=== PATIENT | male | born 1970 | race Caucasian/White ===

== ENCOUNTER → 2017-05-17 | Outpatient (CLI) | payer BC, OTHER ==
[2017-05-17 16:27] LABS: BASO ABS # 0.06 K/uL (0-0.2); COMPLETE YES; EOS % 8.9 %; HEMATOCRIT 45.1 % (42-52); IG% 0.2 %; LYMPH % 31.6 %; LYMPH ABS # 1.99 K/uL (1.2-3.4); MEAN CELL VOLUME 88.4 fL (80-100); MEAN CORPUSCULAR HEMOGLOBIN 29.4 pg (25-34); MEAN CORPUSCULAR HGB CONC 33.3 g/dl (32-36); MEAN PLATELET VOLUME 11.3 fL (7.4-10.4); MONO % 11.3 %; PLATELET COUNT 281 K/uL (130-400); WHITE BLOOD COUNT 6.29 K/uL (4.8-10.8)
[2017-05-17 16:36] LABS: ALT/SGPT 53 U/L (12-78); AST/SGOT 37 U/L (15-37); BLOOD UREA NITROGEN 9 mg/dl (7-18); CALCIUM 9.5 mg/dl (8.5-10.1); CARBON DIOXIDE 27 mmol/L (21-32); CHLORIDE 107 mmol/L (98-107); CHOLESTEROL 198 mg/dl (0-200); GLUCOSE 88 mg/dl (70-99); POTASSIUM 4.1 mmol/L (3.5-5.1); SODIUM 142 mmol/L (136-145); URIC ACID 5.5 mg/dl (2.6-7.2)
[2017-05-17 16:40] LABS: ALB/GLOB RATIO 1.2 (0.9-2); ALKALINE PHOSPHATASE 70 U/L (45-117); CHOLESTEROL/HDL RATIO 5.4; HDL CHOLESTEROL 37 mg/dl; LDL CHOLESTEROL CALCULATED 123 mg/dl; TOTAL IRON BINDING CAPACITY 421 mcg/dl (250-450); TRIGLYCERIDES 189 mg/dl (0-150); VERY LOW DENSITY LIPOPROT CALC 38 mg/dl
== END | disposition home or self-care (01) ==
LOC: C.LABBFT 13:35
PROVIDERS: ATTEND Internal Medicine
DX: D64.9 Anemia, unspecified (principal); E78.5 Hyperlipidemia, unspecified; M10.9 Gout, unspecified

== ENCOUNTER → 2017-09-10 | Outpatient (CLI) | payer OTHER ==
[2017-09-10 17:28] LABS: BASO % 0.8 %; BASO ABS # 0.06 K/uL (0-0.2); COMPLETE YES; EOS % 6.2 %; HEMATOCRIT 47.4 % (42-52); IG% 0.3 %; LYMPH % 33.6 %; LYMPH ABS # 2.59 K/uL (1.2-3.4); MEAN CELL VOLUME 88.4 fL (80-100); MEAN CORPUSCULAR HEMOGLOBIN 30.8 pg (25-34); MEAN CORPUSCULAR HGB CONC 34.8 g/dl (32-36); MEAN PLATELET VOLUME 10.7 fL (7.4-10.4); MONO % 7.1 %; PLATELET COUNT 284 K/uL (130-400); RED BLOOD COUNT 5.36 M/uL (4.7-6.1)
[2017-09-10 17:42] LABS: ALT/SGPT 48 U/L (12-78); AST/SGOT 30 U/L (15-37); BLOOD UREA NITROGEN 10 mg/dl (7-18); BUN/CREATININE RATIO 9.4 (10-20); CALCIUM 8.7 mg/dl (8.5-10.1); CARBON DIOXIDE 23 mmol/L (21-32); CHLORIDE 107 mmol/L (98-107); CREATININE 1.03 mg/dl (0.60-1.40); GLUCOSE 121 mg/dl (70-99); POTASSIUM 3.4 mmol/L (3.5-5.1); SODIUM 138 mmol/L (136-145)
[2017-09-10 18:03] LABS: ALB/GLOB RATIO 1.1 (0.9-2); ALKALINE PHOSPHATASE 71 U/L (45-117); C-REACTIVE PROTEIN < 0.29 mg/dl (0-0.29); RHEUMATOID FACTOR < 10.0 U/mL (0-15)
[2017-09-10 19:16] LABS: LYME DISEASE AB IGG NEG (NEG)
[2017-09-10 20:01] LABS: LYME DISEASE AB IGM NEG (NEG)
== END | disposition home or self-care (01) ==
LOC: C.LABBFT 13:26
PROVIDERS: ATTEND Internal Medicine
DX: M25.50 Pain in unspecified joint (principal); M79.1 Myalgia

== ENCOUNTER → 2018-06-14 | Outpatient (CLI) | payer OTHER ==
[2018-06-14 17:32] LABS: HEMATOCRIT 49.1 % (42-52); HEMOGLOBIN 16.9 g/dL (14.0-18.0); MEAN CELL VOLUME 90.4 fL (80-100); MEAN CORPUSCULAR HEMOGLOBIN 31.1 pg (25-34); MEAN CORPUSCULAR HGB CONC 34.4 g/dl (32-36); MEAN PLATELET VOLUME 10.7 fL (7.4-10.4); PLATELET COUNT 307 K/uL (130-400); RED CELL DISTRIBUTION WIDTH CV 12.6 % (11.5-14.5); RED CELL DISTRIBUTION WIDTH SD 41.4 fL (36.4-46.3); WHITE BLOOD COUNT 8.25 K/uL (4.8-10.8)
[2018-06-14 17:55] LABS: ALBUMIN 4.1 gm/dl (3.4-5.0); ALKALINE PHOSPHATASE 77 U/L (45-117); ALT/SGPT 53 U/L (12-78); AST/SGOT 33 U/L (15-37); BLOOD UREA NITROGEN 12 mg/dl (7-18); CALCIUM 9.2 mg/dl (8.5-10.1); CARBON DIOXIDE 28 mmol/L (21-32); CHOLESTEROL 173 mg/dl (0-200); CREATININE 1.12 mg/dl (0.60-1.40); GLUCOSE 103 mg/dl (70-99); LDL CHOLESTEROL CALCULATED 94 mg/dl; POTASSIUM 4.1 mmol/L (3.5-5.1); SODIUM 138 mmol/L (136-145); TOTAL PROTEIN 7.7 gm/dl (6.4-8.2); URIC ACID 5.7 mg/dl (2.6-7.2)
== END | disposition home or self-care (01) ==
LOC: C.LABBFT 14:16
PROVIDERS: ATTEND Physician Assistant Medical
DX: N18.9 Chronic kidney disease, unspecified (principal); M10.9 Gout, unspecified; D50.9 Iron deficiency anemia, unspecified; E78.5 Hyperlipidemia, unspecified

== ENCOUNTER 2021-12-17 13:37 | Inpatient (IN) ==
--- NOTE | 2021-12-17 13:49 | Emergency Department Note ---
Impression & Plan Acute exacerbation of chronic low back pain, Lumbar radiculopathy, Lumbar disc herniation ED Provider Note NAME: KOREY SKELTON AGE: 51 SEX: M : 1970 ARRIVES VIA: Walk-In INFORMANT: Patient, ED PROVIDER(S): Shar Rodriguez MD Chief Complaint: Back pain HPI: Patient presents due to concern for back pain. Patient states primarily left-sided in the lower back is worse with ambulation. The patient does co mplain of occasional shooting pains but denies any numbness tingling or focal weakness. Patient denies any bowel bladder incontinence or saddle anesthesia. Patient has been following with pain management as well as orthospine with [facility] Dr. Higginbotham over the last 14 months. Patient was scheduled for surgery likely fusion and laminectomy to be completed on Sunday but was canceled. Patient denies any fevers chills chest pains or shortness of breath. Patient is a non-smoker and is vaccinated for COVID-19. Patient has been taking [id number] medications in addition narcotics but with no improvement in symptoms. Patient most recently had an MRI of the lumbar spine completed in August 2021. ROS: See HPI for pertinent positives and negatives. A total of 10 systems were reviewed and otherwise negative. Past medical history: See below Surgical history: See below Social history: See below Physical Exam: GENERAL: NAD, wearing a mask, non-toxic. EYE EXAM: Normal conjunctiva. PERRL, no anisocoria and EOM's grossly intact w/o pain. NECK: Supple, no nuchal rigidity, no adenopathy, non-tender. No signs of meningismus. LUNGS: Clear to auscultation. Normal chest wall mechanics. HEART: NSR, no MRG. ABDOMEN: Abdomen soft, non-tender, normo-active bowel sounds, no masses, no rebound or guarding. BACK: Left-sided lower lumbar paraspinal discomfort without overlying skin changes, no midline lumbar or thoracic spine TTP. SKIN: No rashes and no bruising. UPPER EXTREMITIES: Upper extremities are grossly normal. LOWER EXTREMITIES: Grossly normal, no edema. Negative straight leg raise bilaterally. NEURO EXAM: A&O x3, cranial nerves II-XII grossly intact, normal speech, moves all 4 extremities on command w/o issue. No sensory deficits, no saddle anesthesia. Differential diagnoses: Musculoskeletal, disc herniation, fracture, metastatic disease, cord compression, discitis, sciatica, cauda equina, infection, aortic disease, renal colic, gastrointestinal, as well as other pathologies. Course: Patient was seen and evaluated the bedside. Full history physical exam was performed. Cardiac monitoring: An order was placed for continuous cardiac monitoring. The monitor shows a rate of 72 with sinus rhythm. MDM: Patient was seen due to concern for acute on chronic back pain. Patient's pain was improved. No concerning signs for cauda equina. Given the patient has had symptoms for approximately 14 months patient would prefer surgery if possible. I did speak with the on-call network operations specialist Dr. Higginbotham with whom he follows and he is agreeable to see him in in the morning and may plan for surgery on Sunday. I did speak with the on-call hospitalist Dr. Eli. Patient was admitted to the medicine service. Blood work was obtained along with a Covid swab. Patient has a normal white count H&H and platelet count. Kidney function is unremarkable. Covid negative. Past Med/Surg History Medical History Anemia HX-TAKES DAILY IRON CURRENTLY Anxiety Asthma last rescue inhaler years ago Asthma Celiac disease Chronic back pain Depression Dyslipidemia GERD without esophagitis controlled, stable per pt Gout IgA nephropathy F/U PCP-stable per pt Lumbar disc herniation Surgical History Elective surgery REPAIR LIP INJURY-AGE 10 H/O colonoscopy (07/18/16) [facility] GI, 2 mm rectal polyp, hyperplastic, repeat 10 years History of esophagogastroduodenoscopy (EGD) Hx of left knee surgery ACL RECONSTRUCTION S/P knee surgery RIGHT KNEE-meniscectomy Family History Mother Rheumatoid arthritis Depression Father Depression Gall bladder disease Family history of diabetes mellitus Grandfather (Paternal) Family history of diabetes mellitus Other Myocardial infarction Denies family history of Ovarian cancer Prostate cancer Breast cancer Colorectal cancer Social History Smoking Status: Never smoker Second Hand Exposure: Yes ( A CHILD); Hx Alcohol Use: Yes Alcohol type: hard liquor Alcohol Intake Frequency Comment: patient denied etoh use on 12/17/21 Hx Substance Use: No Preferred Language: Mauritian Communication Ability: Effective Visual Impairment: No Limitations Hearing Ability: Normal Boss Dyer Required: No Beliefs That Will Affect Care: None marital status: Current Living Situation: Spouse, Parent and Family current occupational status: employed 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 How many Children do You have Comment: 2 biological children, 1 step child (has been 2x) Other Information That Helps Us Care for You: No other: lives in [place] with family Feels Safe at Home: Yes Safety Concerns: Feels Safe At This Time Childhood Exposure to Second-Hand Smoke: Yes caffeine: Yes during the past year weight has: remained stable Dental Care, Regularly: Yes Physical Activity Frequency: 3-4 Times per Week Seatbelt Use: always Sunscreen Use: Yes Assistive Devices: Contacts and Glasses Allergies Allergies Allergy/AdvReac Type Severity Reaction Status Date / Time No Known Allergies Allergy Verified 12/17/21 14:41 Home Meds Home Medications Medication Instructions Recorded Confirmed ferrous sulfate 325 mg (65 mg 650 mg PO BID tab 03/03/20 12/17/21 iron) tablet fluticasone 250 mcg-salmeterol 50 1 inh INHALATION BID 07/10/21 12/17/21 mcg/dose blistr powdr for inhalation (Advair Diskus) aspirin 81 mg tablet,delayed 81 mg PO HS 11/18/21 12/17/21 release atorvastatin 20 mg tablet 20 mg PO QAM 11/18/21 12/17/21 duloxetine 30 mg capsule,delayed 30 mg PO HS 11/18/21 12/17/21 release (Cymbalta) omeprazole 40 mg capsule,delayed 40 mg PO QAM 11/18/21 12/17/21 release celecoxib 200 mg capsule 200 mg PO BID 12/17/21 12/17/21 omega-3 fatty acids 1,000 mg 2,000 mg PO BID 12/17/21 12/17/21 capsule Previous Rx's Medication Instructions Recorded allopurinol 100 mg tablet 100 mg PO BID #180 tab 06/28/21 baclofen 10 mg tablet 10 mg PO BID PRN #60 tab 10/26/21 venlafaxine 75 mg capsule,extended 150 mg PO HS #180 cap 12/15/21 release 24 hr Results & Data (ED) Vital Signs Vital Signs - 24 hr 12/17/21 13:42 Temperature 36.8 C Temperature Source Temporal Artery Scan Pulse Rate 78 Respiratory Rate 16 Respiratory Effort / Characteristics Non-Labored Respiratory Depth Normal Respiratory Pattern Regular Blood Pressure 151/104 H Blood Pressure Mean 119 Pulse Oximetry 96 Oxygen Delivery Method Room Air Sepsis Recent Fever Within 48 Hours No Sepsis New/Unexplained Change in Mental Status No Sepsis Action Taken by Nursing No Action Required Home Medications Current Medication List: was personally reviewed by me Laboratory Data Attestation: I reviewed the patient's lab results. Result diagrams: 12/17/21 14:10 12/17/21 14:10 Lab Results 12/17/21 12/17/21 12/17/21 Range/Units 14:10 14:10 15:15 WBC 8.74 (4.8-10.8) K/uL RBC 5.23 (4.7-6.1) M/uL Hgb 16.1 (14.0-18.0) g/dL Hct 48.5 (42-52) % MCV 92.7 (80-100) fL MCH 30.8 (25-34) pg MCHC 33.2 (32-36) g/dL RDW Std Deviation 43.9 (36.4-46.3) fL RDW Coeff of Felix 12.8 (11.5-14.5) % Plt Count 316 (130-400) K/uL MPV 10.9 H (7.4-10.4) fL Immature Gran % (Auto) 0.2 % Neut % (Auto) 61.3 % Lymph % (Auto) 22.4 % Oliver % (Auto) 11.7 % Eos % (Auto) 3.9 % Baso % (Auto) 0.5 % Neut # (Auto) 5.36 (1.4-6.5) K/uL Lymph # (Auto) 1.96 (1.2-3.4) K/uL Oliver # (Auto) 1.02 H (0.11-0.59) K/uL Eos # (Auto) 0.34 (0-0.5) K/uL Baso # (Auto) 0.04 (0-0.2) K/uL Immature Gran # (Auto) 0.02 (0.00-0.02) K/uL Sodium 143 (136-145) mmol/L Potassium 4.1 (3.5-5.1) mmol/L Chloride 108 H (98-107) mmol/L Carbon Dioxide 28 (21-32) mmol/L Anion Gap 7 (3-11) BUN 8 (6-23) mg/dl Creatinine 0.75 (0.6-1.4) mg/dl Est Cr Clr Drug Dosing 135.2 ml/min Est GFR ( Amer) 124.0 ml/min Est GFR (Non-Af Amer) 107.0 ml/min BUN/Creatinine Ratio 10.7 (10-20) Glucose 98 (70-99(Fasting)) mg/dl Calcium 8.6 (8.5-10.1) mg/dl SARS-CoV-2, RNA, NAAT NEGATIVE (NEGATIVE) Administered Medications Discontinued Medications Ketorolac Tromethamine (Ketorolac Tromethamine 15 Mg/Ml Vial) 10 mg IV ONE STA Stop: 12/17/21 14:02 Last Admin: 12/17/21 14:16 Dose: 10 mg Documented by: [id number] Lidocaine (Lidocaine 5% 1 Patch) 1 patch TD NOW STA Stop: 12/17/21 14:02 Last Admin: 12/17/21 14:16 Dose: 1 patch Documented by: [id number] Methylprednisolone (Methylprednisolone 125 Mg/2 Ml Vial) 60 mg IV NOW STA Stop: 12/17/21 14:04 Last Admin: 12/17/21 14:15 Dose: 60 mg Documented by: [id number] Morphine Sulfate (Morphine Sulfate 4 Mg/Ml 1 Ml Carp\Vial) 4 mg IV NOW STA Stop: 12/17/21 14:02 Last Admin: 12/17/21 14:18 Dose: 4 mg Documented by: [id number] Ondansetron HCl (Ondansetron Inj 2 Mg/Ml 2 Ml Vial) 4 mg IV NOW STA Stop: 12/17/21 14:02 Last Admin: 12/17/21 14:14 Dose: 4 mg Documented by: [id number] Discharge Plan Visit Data Chief Complaint: Back Injury/Pain Stated Complaint: LOW BACK PAIN ED Provider: Shar Rodriguez Discharge Problem: Acute exacerbation of chronic low back pain, Lumbar radiculopathy, Lumbar disc herniation Patient Disposition: Admitted As Inpatient Discharge Instructions Interventions: ED Discharge Assessment Last Done: 12/17/21 17:32
[2021-12-17] MEDS ORDERED: MoRPHine SULFATE 4 MG/ML 1 ML CARP\\VIAL IV STA (14:01)
[2021-12-17] MEDS ORDERED: ONDANSETRON INJ 2 MG/ML 2 ML VIAL IV STA (14:01)
[2021-12-17] MEDS ORDERED: KETOROLAC TROMETHAMINE 15 MG/ML VIAL IV STA (14:01)
[2021-12-17] MEDS ORDERED: LIDOCAINE 5% 1 PATCH TD STA (14:01)
[2021-12-17] MEDS ORDERED: methylPREDNISolone 125 MG/2 ML VIAL IV STA (14:03)
--- NOTE | 2021-12-17 15:29 | History & Physical Report ---
Date of Service December 17, 2021 Assessment & Plan (1) Lumbar radiculopathy: Plan: patient with intractable lumbar back pain with radicular symptoms of the left leg. he has exhausted all nonoperative/conservative measures over the last year as delineated in the HPI. his pain is so severe that doing ADLs at home are nearly impossible at this time. pain has not been controlled with current pain regimen including celebrex, percocet prn, and baclofen. 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 At L5-S1 there is a large left paracentral disc protrusion which abuts and posteriorly displaces the left S1 nerve root resulting in severe central canal stenosis with severe left lateral recess narrowing. 2. Additional multilevel discogenic degeneration with ligamentum flavum thickening and facet arthrosis as detailed above resulting in multilevel central canal and neural foraminal stenosis. 3. Mild Modic type I endplate degeneration at L2-L3." The L5-S1 disc disease is likely the largest component of his intractable pain. See #1 above. (4) Celiac disease: Plan: gluten free diet (5) Dyslipidemia: Plan: cont statin (6) Depression: Plan: cont cymbalta; consider dose increase to 60mg/day (7) GERD without esophagitis: Plan: PPI daily (8) Gout: Plan: no flare at this time cont allopurinol prophylaxis (9) Asthma: Plan: no exacerbation at this time controlled cont albuterol prn cont controller agent (breo) (10) DVT prophylaxis: Plan: heparin SC Admission and Anticipated Discharge Date Admission Date: bowel regimen due to narcotic usage from medical standpoint he is optimized for any upcoming surgery from cardiopulmonary standpoint he is acceptable risk History of Present Illness Chief Complaint: intractable low back pain Primary Care Provider: EDUARDA Skinner 51yo male with history of celiac disease and intermittent asthma presents with acute/chronic lumbar back pain. Patient states he has been dealing with left-sided lumbar back pain for about 1 year. He has had associated radicular symptoms in the left leg with pain traveling into the posterior thigh as well as paresthesias of the left foot in the past. He has had chiropractic therapy/adjustments, [address] [facility] (most recent 10/2021), PT, and multiple pain med trials. Meds that he has used recently include celebrex, baclofen prn, and percocet prn. He had previously used tramadol and OTC meds (tylenol/motrin) as well. He is now at a point that all activities of daily living are very difficult and tasks are hard to complete. He has pain most hours of the day. He was to have a lumbar decompression/fusion procedure by Dr Higginbotham last week but it was canceled. It was rescheduled to this week. The patient came to the ER today because he simply could not control his pain at home. Allergies Allergy/AdvReac Type Severity Reaction Status Date / Time No Known Allergies Allergy Verified 12/17/21 14:41 Home Medications Medication Instructions Recorded Confirmed Type ferrous sulfate 325 mg (65 mg 650 mg PO BID tab 03/03/20 12/17/21 History iron) tablet allopurinol 100 mg tablet 100 mg PO BID #180 tab 06/28/21 12/17/21 Rx fluticasone 250 mcg-salmeterol 50 1 inh INHALATION BID 07/10/21 12/17/21 History mcg/dose blistr powdr for inhalation (Advair Diskus) baclofen 10 mg tablet 10 mg PO BID PRN #60 tab 10/26/21 12/17/21 Rx aspirin 81 mg tablet,delayed 81 mg PO HS 11/18/21 12/17/21 History release atorvastatin 20 mg tablet 20 mg PO QAM 11/18/21 12/17/21 History duloxetine 30 mg capsule,delayed 30 mg PO HS 11/18/21 12/17/21 History release (Cymbalta) omeprazole 40 mg capsule,delayed 40 mg PO QAM 11/18/21 12/17/21 History release venlafaxine 75 mg capsule,extended 150 mg PO HS #180 cap 12/15/21 12/17/21 Rx release 24 hr celecoxib 200 mg capsule 200 mg PO BID 12/17/21 12/17/21 History omega-3 fatty acids 1,000 mg 2,000 mg PO BID 12/17/21 12/17/21 History capsule Past Med/Surg History Medical History Anemia HX-TAKES DAILY IRON CURRENTLY Anxiety Asthma last rescue inhaler years ago Asthma Celiac disease Chronic back pain Depression Dyslipidemia GERD without esophagitis controlled, stable per pt Gout IgA nephropathy F/U PCP-stable per pt Lumbar disc herniation Surgical History Elective surgery REPAIR LIP INJURY-AGE 10 H/O colonoscopy (07/18/16) [facility] GI, 2 mm rectal polyp, hyperplastic, repeat 10 years History of esophagogastroduodenoscopy (EGD) Hx of left knee surgery ACL RECONSTRUCTION S/P knee surgery RIGHT KNEE-meniscectomy Family History Mother Rheumatoid arthritis Depression Father Depression Gall bladder disease Family history of diabetes mellitus Grandfather (Paternal) Family history of diabetes mellitus Other Myocardial infarction Denies family history of Ovarian cancer Prostate cancer Breast cancer Colorectal cancer Social History Smoking Status: Never smoker Second Hand Exposure: Yes ( A CHILD); Hx Alcohol Use: Yes Alcohol type: hard liquor Alcohol Intake Frequency Comment: patient denied etoh use on 12/17/21 Hx Substance Use: No Preferred Language: Lithuanian Communication Ability: Effective Visual Impairment: No Limitations Hearing Ability: Normal Call Box Wirer Required: No Beliefs That Will Affect Care: None marital status: Current Living Situation: Spouse, Parent and Family current occupational status: employed 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 How many Children do You have Comment: 2 biological children, 1 step child (has been 2x) Other Information That Helps Us Care for You: No other: lives in [place] with family Feels Safe at Home: Yes Safety Concerns: Feels Safe At This Time Childhood Exposure to Second-Hand Smoke: Yes caffeine: Yes during the past year weight has: remained stable Dental Care, Regularly: Yes Physical Activity Frequency: 3-4 Times per Week Seatbelt Use: always Sunscreen Use: Yes Assistive Devices: Glasses Review of Systems Review of Systems: gen - no fevers/chills/appetite loss/weight loss; vaccinated x 2 against COVID, no booster however Eyes - no change in vision HENT - no loss of taste/smell or dysphagia CV - no exertional chest pains pulm - no cough, congestion, or dyspnea GI - no N/V/diarrhea/blood in stools - no dysuria musculo - acute/chronic lumbar back pain; chronic neck pain as well neuro - previous paresthesias of L foot - improved over last year; ongoing radicular symptoms left thigh; no bowel/bladder incontinence endo - denies diabetes skin - no rash psych - denies depression lymph - denies lymphadenopathy Physical Exam Physical Exam: gen - mildly uncomfortable appearing, a/o x 3 eyes - PERRL mouth - MMM neck - no JVD heart - RRR, s1 s2, no murmur lungs - CTA b/l abd - soft NT ND BS+; no HSM ext - no edema, pulses 2+ b/l neuro - strength 5/5 x both legs; sensation intact to light touch b/l LEs; DTRs - patella 2+ b/l, achilles 1+ or less b/l musculo - back - tender to palpation over l-spine and paraspinal area left lumbar skin - no rash psych - a/o x 3 Results & Data Results & Data ([facility]) Vital Signs (Past 12 Hours) Vital Signs Temp Pulse Resp BP Pulse Ox 12/17/21 13:42 36.8 C 78 16 151/104 H 96 Laboratory Results Laboratory Results - last 24 hr 12/17/21 12/17/21 12/17/21 14:10 14:10 15:15 WBC 8.74 RBC 5.23 Hgb 16.1 Hct 48.5 MCV 92.7 MCH 30.8 MCHC 33.2 RDW Std Deviation 43.9 RDW Coeff of Felix 12.8 Plt Count 316 MPV 10.9 H Immature Gran % (Auto) 0.2 Neut % (Auto) 61.3 Lymph % (Auto) 22.4 Corson % (Auto) 11.7 Eos % (Auto) 3.9 Baso % (Auto) 0.5 Neut # (Auto) 5.36 Lymph # (Auto) 1.96 Corson # (Auto) 1.02 H Eos # (Auto) 0.34 Baso # (Auto) 0.04 Immature Gran # (Auto) 0.02 Sodium 143 Potassium 4.1 Chloride 108 H Carbon Dioxide 28 Anion Gap 7 BUN 8 Creatinine 0.75 Est Cr Clr Drug Dosing 135.2 Est GFR ( Amer) 124.0 Est GFR (Non-Af Amer) 107.0 BUN/Creatinine Ratio 10.7 Glucose 98 Calcium 8.6 SARS-CoV-2, RNA, NAAT NEGATIVE Code Status & VTE Plan Code Status full code PG Care Time/CCT Total # of Minutes Spent Total Time Spent with Patient: Total time spent is greater than 50% in coordination of care (as documented) at patient's floor/unit and/or counseling patient: Coding Level of Care Code 78843 Initial Inpt Care Lvl 2 Diagnoses Lumbar radiculopathy M54.16 Intractable low back pain M54.59 Lumbar disc herniation M51.26 Celiac disease K90.0 Dyslipidemia E78.5 Depression F32.9 GERD without esophagitis K21.9 Gout M10.9 Asthma J45.909 DVT prophylaxis Z29.9
[2021-12-17 16:33] LABS: Basophils # (auto) 0.04 K/uL (0-0.2); Basophils % (auto) 0.5 %; Eosinophils # (auto) 0.34 K/uL (0-0.5); Eosinophils % (auto) 3.9 %; Hematocrit (blood only) 48.5 % (42-52); Hemoglobin 16.1 g/dL (14.0-18.0); Immature Granulocytes # (auto) 0.02 K/uL (0.00-0.02); Immature Granulocytes % (auto) 0.2 %; Lymphocytes # (auto) 1.96 K/uL (1.2-3.4); Lymphocytes % (auto) 22.4 %; Mean Corpuscular Hemoglobin 30.8 pg (25-34); Mean Corpuscular Hgb Conc 33.2 g/dL (32-36); Mean Corpuscular Volume 92.7 fL (80-100); Mean Platelet Volume 10.9 fL (7.4-10.4); Monocytes # (auto) 1.02 K/uL (0.11-0.59); Monocytes % (auto) 11.7 %; Neutrophils # (auto) 5.36 K/uL (1.4-6.5); Neutrophils % (auto) 61.3 %; Platelet Count 316 K/uL (130-400); RDW Coefficient of Variation 12.8 % (11.5-14.5); RDW Standard Deviation 43.9 fL (36.4-46.3); Red Blood Count 5.23 M/uL (4.7-6.1); White Blood Count 8.74 K/uL (4.8-10.8)
[2021-12-17 16:41] LABS: BUN Creatinine Ratio 10.7 (10-20); Calcium 8.6 mg/dl (8.5-10.1); Creatinine Clr Calc Pharmacy 135.2 ml/min; Potassium 4.1 mmol/L (3.5-5.1)
[2021-12-17] MEDS ORDERED: ONDANSETRON INJ 2 MG/ML 2 ML VIAL IV PRN (18:12)
[2021-12-17] MEDS ORDERED: ALBUTEROL HFA 8 GM INHALER INH PRN (18:12)
[2021-12-17] MEDS ORDERED: BACLOFEN 10 MG TAB PO PRN (18:12)
[2021-12-17] MEDS: HYDROmorphone INJ 0.5 MG/0.5 ML SYR IV PRN (19:40)
[2021-12-17] MEDS: allopurinoL 100 MG TAB PO SCH (21:00)
[2021-12-17] MEDS: dexAMETHasone 4 MG in SYRINGE 0 ML IV SCH (21:00)
[2021-12-17] MEDS: VENLAFAXINE HCL XR 150 MG CAPXR PO SCH (21:00)
[2021-12-17] MEDS: ACETAMINOPHEN 500 MG TAB PO SCH (21:00)
[2021-12-17] MEDS: DULoxetine HCL 30 MG CAP PO SCH (21:00)
[2021-12-17] MEDS: HEPARIN SOD 5,000 UNIT/0.5 ML VIAL SQ SCH (21:08)
[2021-12-18] MEDS: HEPARIN SOD 5,000 UNIT/0.5 ML VIAL SQ SCH ×2 (05:24→13:37)
[2021-12-18] MEDS: HYDROmorphone INJ 0.5 MG/0.5 ML SYR IV PRN ×3 (07:22→16:11)
--- NOTE | 2021-12-18 07:54 | Orthopedic Consultation ---
Date of Consultation December 18, 2021 Assessment & Plan (1) Lumbar radiculopathy: Patient presents with increasing lower back and radicular complaints. He has likely had progression of his pathology. I had like to repeat the MRI at this point. We will make him n.p.o. after midnight. We will make further plans once his new MRI has been obtained. He is likely require surgery later this week. History of Present Illness Attending Physician: Farzad Briscoe MD History of Present Illness Patient is a pleasant 51-year-old gentleman who is well-known to our practice. We have been following him over the past year for spinal stenosis. He has an admixture of lower back pain pain that radiates down both of his legs. He was set to undergo a lumbar decompression and fusion. The pain became uncontrolled with home medications and presented to the emergency room. He is admitted to the medical service at this point. He states the back pain is controlled with medications in the hospital but could not stand or walk when he was home. He reports perceived weakness in both lower extremities and difficulties walking. He has not had any change in bladder or bowel function. His most recent MRI was in August 2021. Allergies Allergy/AdvReac Type Severity Reaction Status Date / Time No Known Allergies Allergy Verified 12/17/21 14:41 Home Medications Medication Instructions Recorded Confirmed Type ferrous sulfate 325 mg (65 mg 650 mg PO BID tab 03/03/20 12/17/21 History iron) tablet allopurinol 100 mg tablet 100 mg PO BID #180 tab 06/28/21 12/17/21 Rx fluticasone 250 mcg-salmeterol 50 1 inh INHALATION BID 07/10/21 12/17/21 History mcg/dose blistr powdr for inhalation (Advair Diskus) baclofen 10 mg tablet 10 mg PO BID PRN #60 tab 10/26/21 12/17/21 Rx aspirin 81 mg tablet,delayed 81 mg PO HS 11/18/21 12/17/21 History release atorvastatin 20 mg tablet 20 mg PO QAM 11/18/21 12/17/21 History duloxetine 30 mg capsule,delayed 30 mg PO HS 11/18/21 12/17/21 History release (Cymbalta) omeprazole 40 mg capsule,delayed 40 mg PO QAM 11/18/21 12/17/21 History release venlafaxine 75 mg capsule,extended 150 mg PO HS #180 cap 12/15/21 12/17/21 Rx release 24 hr celecoxib 200 mg capsule 200 mg PO BID 12/17/21 12/17/21 History omega-3 fatty acids 1,000 mg 2,000 mg PO BID 12/17/21 12/17/21 History capsule Patient History Medical History Anemia HX-TAKES DAILY IRON CURRENTLY Anxiety Asthma last rescue inhaler years ago Asthma Celiac disease Chronic back pain Depression Dyslipidemia GERD without esophagitis controlled, stable per pt Gout IgA nephropathy F/U PCP-stable per pt Lumbar disc herniation Surgical History Elective surgery REPAIR LIP INJURY-AGE 10 H/O colonoscopy (07/18/16) [facility] GI, 2 mm rectal polyp, hyperplastic, repeat 10 years History of esophagogastroduodenoscopy (EGD) Hx of left knee surgery ACL RECONSTRUCTION S/P knee surgery RIGHT KNEE-meniscectomy Family History Mother Rheumatoid arthritis Depression Father Depression Gall bladder disease Family history of diabetes mellitus Grandfather (Paternal) Family history of diabetes mellitus Other Myocardial infarction Denies family history of Ovarian cancer Prostate cancer Breast cancer Colorectal cancer Social History Smoking Status: Never smoker Second Hand Exposure: Yes ( A CHILD); Hx Alcohol Use: Yes Alcohol type: hard liquor Alcohol Intake Frequency Comment: patient denied etoh use on 12/17/21 Hx Substance Use: No Preferred Language: Congolese Communication Ability: Effective Visual Impairment: No Limitations Hearing Ability: Normal Edge Plugger Required: No Beliefs That Will Affect Care: None marital status: Current Living Situation: Spouse, Parent and Family current occupational status: employed 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 He is able to move his extremities to gravity. He has increased tenderness in the lower portion of his back with a straight leg raise but no radicular complaints. His strength is 5 out of 5 to detailed muscle testing without exception. Sensation is intact to light touch proprioception is also intact. He is able to roll from side to side without difficulties. His findings are most of the hips and knees. His abdomen soft nontender his calves are supple nontender. Results & Data ([facility]) Vital Signs (Past 12 Hours) Vital Signs Temp Pulse Resp BP Pulse Ox 12/18/21 07:33 155/78 H 12/17/21 22:05 36.5 C 74 16 164/74 H 90
[2021-12-18] MEDS: dexAMETHasone 4 MG in SYRINGE 0 ML IV SCH ×2 (08:54→21:18)
[2021-12-18] MEDS: POLYETHYLENE (MIRALAX) 17 GM PACK PO SCH (08:54)
[2021-12-18] MEDS: allopurinoL 100 MG TAB PO SCH ×2 (08:54→21:18)
[2021-12-18] MEDS: FLUTICASONE/VILANTEROL 200/25MCG 14 PUFFS/INHALER INH SCH (08:55)
[2021-12-18] MEDS: PANTOprazole 40 MG TAB PO SCH (08:55)
[2021-12-18] MEDS: ATORVASTATIN 20 MG TAB PO SCH (08:55)
[2021-12-18] MEDS: ACETAMINOPHEN 500 MG TAB PO SCH ×3 (08:55→21:17)
[2021-12-18] MEDS: SENNA 8.6 MG TAB PO SCH (08:55)
--- NOTE | 2021-12-18 15:01 | Hospitalist Progress Note ---
Date of Service December 18, 2021 Assessment & Plan (1) Lumbar radiculopathy: Plan: patient with intractable lumbar back pain with radicular symptoms of the left leg. he has exhausted all nonoperative/conservative measures over the last year as delineated in the HPI. his pain is so severe that doing ADLs at home are nearly impossible at this time. pain has not been controlled with current pain regimen including celebrex, percocet prn, and baclofen. plan - * dilaudid 0.5mg q4h prn * dexamethasone 4mg IV BID * tylenol 1gm TID * baclofen BID prn * heating pad * consult Dr Higginbotham from orthopedics, seen this AM by [facility], updated MRI ordered * consider titration of cymbalta from 30mg to 60mg * Pt NPO after MN tonight w/ anticipation of surgery tomorrow (12/19) Pain is adequately controlled on above regimen. Will continue for now and adjust pain regimen post-surgery. (2) Intractable low back pain: Plan: see above (3) Lumbar disc herniation: Plan: MRI lumbar spine in Dec 2020 showed the followin. At L5-S1 there is a large left paracentral disc protrusion which abuts and posteriorly displaces the left S1 nerve root resulting in severe central canal stenosis with severe left lateral recess narrowing. 2. Additional multilevel discogenic degeneration with ligamentum flavum thickening and facet arthrosis as detailed above resulting in multilevel central canal and neural foraminal stenosis. 3. Mild Modic type I endplate degeneration at L2-L3. The L5-S1 disc disease is likely the largest component of his intractable pain. See #1 above. (4) Celiac disease: Plan: gluten free diet (5) Dyslipidemia: Plan: cont statin (6) Depression: Plan: cont cymbalta & effexor (7) GERD without esophagitis: Plan: PPI daily (8) Gout: Plan: no flare at this time cont allopurinol prophylaxis (9) Asthma: Plan: no exacerbation at this time controlled cont albuterol prn cont controller agent (breo) (10) DVT prophylaxis: Plan: heparin SC ordered, will place on hold in anticipation of surgical intervention tomorrow Plan: Interventions as above. Will need post operative labs and PT/OT eval when cleared by ortho to participate. Admission and Anticipated Discharge Date Admission Date: December 17, 2021 Subjective Pt seen on rounds today. He is currently resting in bed, offers no new complaints. Reports that his lower back pain is adequately controlled. Has no pain down his L leg, denies paresthesias. Denies loss of bowel or bladder dysfunction. Review of Systems Review of Systems: CONSTITUTIONAL: Denies weight loss/gain, fever and chills, fatigue, malaise, generalized weakness. HEENT: Denies changes in vision and hearing. RESPIRATORY: Denies SOB, cough, wheezing. CV: Denies palpitations, CP, lower extremity edema, orthopnea, PND. GI: Denies abdominal pain, nausea, vomiting and diarrhea. : Denies dysuria and urinary frequency, urgency, hesitancy. MUSCULOSKELETAL: +low back pain, radiates to L hip. SKIN: Denies rash and pruritus. NEUROLOGICAL: Denies headache, syncope, focal weakness, numbness, tingling. PSYCHIATRIC: Denies recent changes in mood. Denies anxiety and depression. Physical Exam Physical Exam: CONSTITUTIONAL: Denies weight loss/gain, fever and chills, fatigue, malaise, generalized weakness. HEENT: Denies changes in vision and hearing. RESPIRATORY: Denies SOB, cough, wheezing. CV: Denies palpitations, CP, lower extremity edema, orthopnea, PND. GI: Denies abdominal pain, nausea, vomiting and diarrhea. : Denies dysuria and urinary frequency, urgency, hesitancy. MUSCULOSKELETAL: +back pain. SKIN: Denies rash and pruritus. NEUROLOGICAL: Denies headache, syncope, focal weakness, numbness, tingling. PSYCHIATRIC: Denies recent changes in mood. Denies anxiety and depression. Results & Data Results & Data ([facility]) Vital Signs (Past 12 Hours) Vital Signs Temp Pulse Resp BP Pulse Ox 12/18/21 12:15 78 146/79 H 12/18/21 09:40 103 H 16 164/94 H 12/18/21 07:51 36.7 C 77 18 185/83 H 92 12/18/21 07:33 155/78 H Laboratory Results No labs this morning Diagnostic Findings MRI updated today 12/18 but final report pending read by radiologist PG Care Time/CCT Total # of Minutes Spent Total Time Spent with Patient: Total time spent is greater than 50% in coordination of care (as documented) at patient's floor/unit and/or counseling patient: Coding Level of Care Code 08403 Subseq Hosp Care Lvl 2 Diagnoses Lumbar radiculopathy M54.16 Intractable low back pain M54.59 Lumbar disc herniation M51.26 Celiac disease K90.0 Dyslipidemia E78.5 Depression F32.9 GERD without esophagitis K21.9 Gout M10.9 Asthma J45.909 DVT prophylaxis Z29.9
[2021-12-18] MEDS: VENLAFAXINE HCL XR 150 MG CAPXR PO SCH (21:18)
[2021-12-18] MEDS: DULoxetine HCL 30 MG CAP PO SCH (21:18)
--- NOTE | 2021-12-18 22:33 | Magnetic Resonance Report ---
MR lumbar spine wo con CLINICAL HISTORY: Chronic low back pain. Patient reports he is scheduled for spinal fusion. COMPARISON: 01/02/2021 TECHNIQUE: Multiplanar multisequence images of the Lumbar Spine were performed without contrast. FINDINGS: There is no evidence for vertebral body fracture. The heights of the vertebral bodies are maintained. The vertebral bodies are in anatomic alignment. Homogeneous marrow signal is seen without evidence f or marrow edema or marrow replacement. T12-L1: The disc space height is maintained. There are no focal disc protrusions or extrusions ident ified. The thecal sac and epidural fat are maintained. The neural foramen are patent bilaterally. Th ere is no evidence for nerve root encroachment. The facet joints are within normal limits. L1-2: The disc space height is maintained. There are no focal disc protrusions or extrusions identi fied. The thecal sac and epidural fat are maintained. The neural foramen are patent bilaterally. The re is no evidence for nerve root encroachment. The facet joints are within normal limits. L2-3: There is moderate disc space narrowing with bulging of the annulus and disc/osteophyte complex present anteriorly. There are no focal disc protrusions or extrusions identified. There is again f lattening of thecal sac anteriorly. Thickening of ligamentum flavum is also again seen bilaterally in the combination of these findings produce mild to moderate central canal stenosis. No foraminal sten osis is identified. Mild hypertrophic facet joint disease is present bilaterally. L3-4: The disc space height is maintained. There are no focal disc protrusions or extrusions identi fied. There is diffuse bulging of annulus with flattening of thecal sac anteriorly. Hypertrophic fac et joint disease with thickening of ligamentum flavum is present bilaterally. This encroaches upon th e thecal sac anterolaterally, bilaterally with mild central canal stenosis again seen. The neural for amen are patent bilaterally. No focal nerve root impingement is seen. L4-5: There is moderate disc space narrowing with diffuse bulging annulus present. There are no foc al disc protrusions or extrusions identified. There is flattening of thecal sac anteriorly. Moderate hypertrophic facet joint disease with thickening of ligamentum flavum is present bilaterally. The co mbination of these findings produce moderate to marked central canal stenosis at this level. There is mild asymmetric left foraminal stenosis when compared to the right. No focal nerve root impingement is identified . L5-S1: Moderate disc space narrowing is present. Compared to previous examination, there has been i nterval decrease in previously identified left paracentral disc protrusion/herniation. The herniated disc again abuts the left S1 nerve root without compressing it on the current study. The neural fora men are patent bilaterally. There is no evidence for nerve root encroachment. Moderate hypertrophic f acet joint disease present bilaterally. IMPRESSION: 1. Interval decrease in left paracentral disc protrusion/herniation L5-S1 as described. 2. There is again moderate to marked central canal stenosis at L4-5. 3. Degenerative disc and degenerative facet joint disease is also present at additional disc space le vels as delineated at each disc space level above. ACT 112: Negative or not required by law. Electronically signed by: Dany Pereira M.D. 12/18/2021 10:31 PM
[2021-12-19] MEDS: SENNA 8.6 MG TAB PO SCH (09:19)
[2021-12-19] MEDS: POLYETHYLENE (MIRALAX) 17 GM PACK PO SCH (09:19)
[2021-12-19] MEDS: FLUTICASONE/VILANTEROL 200/25MCG 14 PUFFS/INHALER INH SCH (09:21)
[2021-12-19] MEDS: ACETAMINOPHEN 500 MG TAB PO SCH ×3 (09:22→20:40)
[2021-12-19] MEDS: dexAMETHasone 4 MG in SYRINGE 0 ML IV SCH ×2 (09:22→20:41)
[2021-12-19] MEDS: ATORVASTATIN 20 MG TAB PO SCH (09:22)
[2021-12-19] MEDS: allopurinoL 100 MG TAB PO SCH ×2 (09:22→20:40)
[2021-12-19] MEDS: PANTOprazole 40 MG TAB PO SCH (09:22)
--- NOTE | 2021-12-19 10:20 | Hospitalist Progress Note ---
Date of Service December 19, 2021 Assessment & Plan (1) Lumbar radiculopathy: Plan: patient with intractable lumbar back pain with radicular symptoms of the left leg. he has exhausted all nonoperative/conservative measures over the last year as delineated in the HPI. his pain is so severe that doing ADLs at home are nearly impossible at this time. pain has not been controlled with current pain regimen including celebrex, percocet prn, and baclofen. plan - * dilaudid 0.5mg q4h prn * dexamethasone 4mg IV BID * tylenol 1gm TID * baclofen BID prn * heating pad * consult Dr Higginbotham from orthopedics, seen this AM by [facility], updated MRI, results as above * consider titration of cymbalta from 30mg to 60mg * Pt remains NPO to prepare for OR later today Pain is adequately controlled on above regimen. Will continue for now and adjust pain regimen post-surgery. (2) Intractable low back pain: Plan: see above (3) Lumbar disc herniation: Plan: MRI lumbar spine in Dec 2020 showed the followin. At L5-S1 there is a large left paracentral disc protrusion which abuts and posteriorly displaces the left S1 nerve root resulting in severe central canal stenosis with severe left lateral recess narrowing. 2. Additional multilevel discogenic degeneration with ligamentum flavum thickening and facet arthrosis as detailed above resulting in multilevel central canal and neural foraminal stenosis. 3. Mild Modic type I endplate degeneration at L2-L3. The L5-S1 disc disease is likely the largest component of his intractable pain. See #1 above. (4) Celiac disease: Plan: gluten free diet (5) Dyslipidemia: Plan: cont statin (6) Depression: Plan: cont cymbalta & effexor (7) GERD without esophagitis: Plan: PPI daily (8) Gout: Plan: no flare at this time cont allopurinol prophylaxis (9) Asthma: Plan: no exacerbation at this time controlled cont albuterol prn cont controller agent (breo) (10) DVT prophylaxis: Plan: heparin SC ordered, held this morning and last evening for OR today Plan: Interventions as above. Will need post operative labs and PT/OT eval when cleared by ortho to participate. AM labs ordered. Admission and Anticipated Discharge Date Admission Date: December 17, 2021 Subjective Pt seen on rounds today. He is currently resting in bed, offers no new complaints. Back pain continues to be controlled. Has no pain down his L leg, denies paresthesias. Denies loss of bowel or bladder dysfunction. For OR later today. Time unknown. Review of Systems Review of Systems: CONSTITUTIONAL: Denies weight loss/gain, fever and chills, fatigue, malaise, generalized weakness. HEENT: Denies changes in vision and hearing. RESPIRATORY: Denies SOB, cough, wheezing. CV: Denies palpitations, CP, lower extremity edema, orthopnea, PND. GI: Denies abdominal pain, nausea, vomiting and diarrhea. : Denies dysuria and urinary frequency, urgency, hesitancy. MUSCULOSKELETAL: +low back pain, radiates to L hip. SKIN: Denies rash and pruritus. NEUROLOGICAL: Denies headache, syncope, focal weakness, numbness, tingling. PSYCHIATRIC: Denies recent changes in mood. Denies anxiety and depression. Physical Exam 2 Physical Exam: GENERAL: 51 yo well-developed, well-nourished WM. NAD. LUNGS: Clear to auscultation bilaterally. No W/R/R. CARDIOVASCULAR: Regular rate and rhythm. No M/G/R. No JVD. ABDOMEN: Soft, non-tender and non-distended. BS normal x 4 quad. EXTREMITIES: No edema. Non-tender. Peripheral pulses +2/4. NEUROLOGIC: A&O x3. PSYCHIATRIC: Cooperative. Appropriate mood and affect. SKIN: Warm, dry, intact. No rashes or lesions. Results & Data Results & Data ([facility]) Vital Signs (Past 12 Hours) Vital Signs Temp Pulse Resp BP Pulse Ox 12/19/21 07:25 36.7 C 66 16 157/90 H 94 Diagnostic Findings Lumbar Spine MRI 12/18/21 07:54 MR lumbar spine wo con CLINICAL HISTORY: Chronic low back pain. Patient reports he is scheduled for spinal fusion. COMPARISON: 01/02/2021 TECHNIQUE: Multiplanar multisequence images of the Lumbar Spine were performed without contrast. FINDINGS: There is no evidence for vertebral body fracture. The heights of the vertebral bodies are maintained. The vertebral bodies are in anatomic alignment. Homogeneous marrow signal is seen without evidence for marrow edema or marrow replacement. T12-L1: The disc space height is maintained. There are no focal disc protrusions or extrusions identified. The thecal sac and epidural fat are maintained. The neural foramen are patent bilaterally. There is no evidence for nerve root encroachment. The facet joints are within normal limits. L1-2: The disc space height is maintained. There are no focal disc protrusions or extrusions identified. The thecal sac and epidural fat are maintained. The neural foramen are patent bilaterally. There is no evidence for nerve root encroachment. The facet joints are within normal limits. L2-3: There is moderate disc space narrowing with bulging of the annulus and disc/osteophyte complex present anteriorly. There are no focal disc protrusions or extrusions identified. There is again flattening of thecal sac anteriorly. Thickening of ligamentum flavum is also again seen bilaterally in the combination of these findings produce mild to moderate central canal stenosis. No foraminal stenosis is identified. Mild hypertrophic facet joint disease is present bilaterally. L3-4: The disc space height is maintained. There are no focal disc protrusions or extrusions identified. There is diffuse bulging of annulus with flattening of thecal sac anteriorly. Hypertrophic facet joint disease with thickening of ligamentum flavum is present bilaterally. This encroaches upon the thecal sac anterolaterally, bilaterally with mild central canal stenosis again seen. The neural foramen are patent bilaterally. No focal nerve root impingement is seen. L4-5: There is moderate disc space narrowing with diffuse bulging annulus present. There are no focal disc protrusions or extrusions identified. There is flattening of thecal sac anteriorly. Moderate hypertrophic facet joint disease with thickening of ligamentum flavum is present bilaterally. The combination of these findings produce moderate to marked central canal stenosis at this level. There is mild asymmetric left foraminal stenosis when compared to the right. No focal nerve root impingement is identified . L5-S1: Moderate disc space narrowing is present. Compared to previous examination, there has been interval decrease in previously identified left paracentral disc protrusion/herniation. The herniated disc again abuts the left S1 nerve root without compressing it on the current study. The neural foramen are patent bilaterally. There is no evidence for nerve root encroachment. Moderate hypertrophic facet joint disease present bilaterally. IMPRESSION: 1. Interval decrease in left paracentral disc protrusion/herniation L5-S1 as described. 2. There is again moderate to marked central canal stenosis at L4-5. 3. Degenerative disc and degenerative facet joint disease is also present at additional disc space levels as delineated at each disc space level above. ACT 112: Negative or not required by law. Electronically signed by: Dany Pereira M.D. 12/18/2021 10:31 PM PG Care Time/CCT Total # of Minutes Spent Total Time Spent with Patient: Total time spent is greater than 50% in coordination of care (as documented) at patient's floor/unit and/or counseling patient: Coding Level of Care Code 91141 Subseq Hosp Care Lvl 2 Diagnoses Lumbar radiculopathy M54.16 Intractable low back pain M54.59 Lumbar disc herniation M51.26 Celiac disease K90.0 Dyslipidemia E78.5 Depression F32.9 GERD without esophagitis K21.9 Gout M10.9 Asthma J45.909 DVT prophylaxis Z29.9
--- NOTE | 2021-12-19 11:38 | Orthopedic Progress Note ---
Date of Service December 19, 2021 Assessment & Plan (1) Lumbar radiculopathy: Plan: Updated MRI lumbar spine does continue to demonstrate severe central and lateral recess stenosis L4-L5. This is consistent with his symptom complex and presentation. This point in recommending an urgent lumbar decompression and fusion L4-L5. This would allow us to adequately decompress the spinal canal address iatrogenic instability secondary to adequate decompression and hopefully provide marked improvement of his neurogenic claudication and radiculopathy. Perspectives pros cons and alternatives were outlined detail. He will be made n.p.o. after midnight we will plan for surgery tomorrow. Admission and Anticipated Discharge Date Admission Date: December 17, 2021 Subjective Patient continues to struggle with severe back and left leg pain. Is markedly limiting his ability to stand and ambulate. He is requiring narcotic medications to tolerate the pain. Physical Exam Physical Exam: On exam is in bed. Appears to be sitting up to some degree. Instrument reasonable strength testing of bilateral extremities. Results & Data ([facility]) Vital Signs (Past 12 Hours) Vital Signs Temp Pulse Resp BP Pulse Ox 12/19/21 07:25 36.7 C 66 16 157/90 H 94
[2021-12-19] MEDS: HYDROmorphone INJ 0.5 MG/0.5 ML SYR IV PRN ×2 (12:13→17:33)
--- NOTE | 2021-12-19 14:51 | Anesthesiology Consultation ---
Date of Service December 19, 2021 Assessment & Plan (1) Encounter for pre-operative examination: Chart Review Chart Review: Acceptable Risk for Surgery and Patient NOT seen in Pre Admission Testing Medical clearance 12/01/2021 MN: "...51 year old male with no known history of CAD, valvular disease, arrhythmia, CHF, diabetes, renal/hepatic impairment or exertional chest pain, dyspnea, sleep apnea or claudication symptoms presents for preoperative clearance prior to lumbar spine surgery. He does not use tobacco and consumes rare ETOH. - EKG NSR - CXR - no acute process - Labs unremarkable, urine negative Patient felt to be low risk for this intermediate risk procedure. Proceed at discretion of surgeon/anesthesia..." Patient acceptable risk to proceed with surgery. Consults Requested none History Surgery Operation Date: 12/20/21 09:35 Proposed Procedures p L4-L5 Decompression Fusion - Dimitris Higginbotham DO Height/Weight Height: 5 ft 10 in Weight: 92.8 kg Allergies Allergy/AdvReac Type Severity Reaction Status Date / Time No Known Allergies Allergy Verified 12/17/21 14:41 Medications Home Medications Medication Instructions Recorded Confirmed Last Taken ferrous sulfate 325 mg (65 mg 650 mg PO BID tab 03/03/20 12/17/21 12/17/21 08:00 iron) tablet allopurinol 100 mg tablet 100 mg PO BID #180 tab 06/28/21 12/17/21 12/17/21 08:00 fluticasone 250 mcg-salmeterol 50 1 inh INHALATION BID 07/10/21 12/17/21 12/17/21 08:00 mcg/dose blistr powdr for inhalation (Advair Diskus) baclofen 10 mg tablet 10 mg PO BID PRN #60 tab 10/26/21 12/17/21 Unknown aspirin 81 mg tablet,delayed 81 mg PO HS 11/18/21 12/17/21 12/16/21 release atorvastatin 20 mg tablet 20 mg PO QAM 11/18/21 12/17/21 12/17/21 duloxetine 30 mg capsule,delayed 30 mg PO HS 11/18/21 12/17/21 12/16/21 release (Cymbalta) omeprazole 40 mg capsule,delayed 40 mg PO QAM 11/18/21 12/17/21 12/17/21 release venlafaxine 75 mg capsule,extended 150 mg PO HS #180 cap 12/15/21 12/17/21 12/16/21 release 24 hr celecoxib 200 mg capsule 200 mg PO BID 12/17/21 12/17/21 12/17/21 08:00 omega-3 fatty acids 1,000 mg 2,000 mg PO BID 12/17/21 12/17/21 12/17/21 08:00 capsule Active Medications Generic Name Dose Route Start Last Admin Trade Name Freq PRN Reason Stop Dose Admin Acetaminophen 1,000 mg 12/17/21 21:00 12/19/21 13:48 Acetaminophen 500 Mg Tab PO 01/16/22 20:59 1,000 mg TID NELY Administration Allopurinol 100 mg 12/17/21 21:00 12/19/21 09:22 Allopurinol 100 Mg Tab PO 01/16/22 20:59 100 mg BID NELY Administration Atorvastatin Calcium 20 mg 12/18/21 09:00 12/19/21 09:22 Atorvastatin 20 Mg Tab PO 01/17/22 08:59 20 mg QAM NELY Administration Duloxetine HCl 30 mg 12/17/21 21:00 12/18/21 21:18 Duloxetine Hcl 30 Mg Cap PO 01/16/22 20:59 30 mg HS NELY Administration Fluticasone/Vilanterol 1 puffs 12/18/21 09:00 12/19/21 09:21 Fluticasone/Vilanterol 200/25mcg 14 Puffs/Inhaler INH 01/17/22 08:59 1 puffs DAILY NELY Administration Protocol Heparin Sodium (Porcine) 5,000 units 12/17/21 22:00 12/18/21 13:37 Heparin Sod 5,000 Unit/0.5 Ml Vial SQ 01/16/22 21:59 5,000 units Q8 NELY Administration Hydromorphone HCl 0.5 mg 12/17/21 18:12 12/19/21 12:13 Hydromorphone Inj 0.5 Mg/0.5 Ml Syr IV 12/31/21 18:11 0.5 mg Q4H PRN Administration Pain Dexamethasone 4 mg/ Syringe 1 mls @ 1 mls/min 12/17/21 21:00 12/19/21 09:22 IV 01/16/22 20:59 1 mls/min BID NELY Administration Miscellaneous 1 ea 12/17/21 21:00 12/18/21 21:18 Remove Lidoderm Patch N/A 01/16/22 20:59 1 ea DAILY@2100 NELY Administration Pantoprazole Sodium 40 mg 12/18/21 09:00 12/19/21 09:22 Pantoprazole 40 Mg Tab PO 01/17/22 08:59 40 mg QAM NELY Administration Polyethylene Glycol 17 gm 12/18/21 09:00 12/19/21 09:19 Polyethylene (Miralax) 17 Gm Pack PO 01/17/22 08:59 Not Given DAILY NELY Sennosides 17.2 mg 12/18/21 09:00 12/19/21 09:19 Senna 8.6 Mg Tab PO 01/17/22 08:59 Not Given QAM NELY Venlafaxine HCl 150 mg 12/17/21 21:00 12/18/21 21:18 Venlafaxine Hcl Xr 150 Mg Capxr PO 01/16/22 20:59 150 mg HS NELY Administration NPO Date Last Intake of Fluids: 12/18/21 Time Last Intake of Fluids: 23:59 Date Last Intake of Solids: 12/18/21 Time Last Intake of Solids: 23:59 Past Medical History Medical History Anemia HX-TAKES DAILY IRON CURRENTLY Anxiety Asthma last rescue inhaler years ago Asthma Celiac disease Chronic back pain Depression Dyslipidemia GERD without esophagitis controlled, stable per pt Gout IgA nephropathy F/U PCP-stable per pt Lumbar disc herniation Past Family History Family History Mother Rheumatoid arthritis Depression Father Depression Gall bladder disease Family history of diabetes mellitus Grandfather (Paternal) Family history of diabetes mellitus Other Myocardial infarction Denies family history of Ovarian cancer Prostate cancer Breast cancer Colorectal cancer Past Surgical History Surgical History Elective surgery REPAIR LIP INJURY-AGE 10 H/O colonoscopy (07/18/16) [facility] GI, 2 mm rectal polyp, hyperplastic, repeat 10 years History of esophagogastroduodenoscopy (EGD) Hx of left knee surgery ACL RECONSTRUCTION S/P knee surgery RIGHT KNEE-meniscectomy Social History Smoking Status: Never smoker Hx Alcohol Use: Yes Alcohol type: hard liquor alcohol intake frequency: holidays/special occasions only Hx Substance Use: No Physical Exam Vital Signs Last Vital Signs Temp 36.8 C 12/19/21 14:12 Pulse 87 12/19/21 14:12 Resp 16 12/19/21 14:12 BP 151/96 H 12/19/21 14:12 Pulse Ox 90 12/19/21 14:12 Testing Laboratory Results 12/17/21 14:10 12/17/21 14:10 Electrocardiogram Date: 11/29/21 DICTATED BY:Rufino Paul MD Test Reason : Blood Pressure : / mmHG Vent. Rate : 068 BPM Atrial Rate : 068 BPM P-R Int : 162 ms QRS Dur : 088 ms QT Int : 386 ms P-R-T Axes : 053 089 067 degrees QTc Int : 410 ms Normal sinus rhythm Normal ECG No previous ECGs available Confirmed by Rufino Paul ([id number]) on 11/30/2021 6:23:07 AM Chest X-Ray Date: 11/29/21 XR chest Pre-admission PA/Lat HISTORY: Preop. Back pain. COMPARISON: None. FINDINGS: The lungs are clear. Cardiac silhouette is normal in size. No pleural effusions. No pneumothorax. Mild degenerative changes within the thoracic spine. IMPRESSION: No acute process.
[2021-12-19] MEDS: DULoxetine HCL 30 MG CAP PO SCH (20:40)
[2021-12-19] MEDS: VENLAFAXINE HCL XR 150 MG CAPXR PO SCH (20:42)
[2021-12-20 07:27] LABS: Hematocrit (blood only) 48.2 % (42-52); Hemoglobin 16.2 g/dL (14.0-18.0)
[2021-12-20 07:54] LABS: BUN Creatinine Ratio 27.7 (10-20); Calcium 8.7 mg/dl (8.5-10.1); Creatinine Clr Calc Pharmacy 155.6 ml/min; Est GFR (African American) 131.5 ml/min; Est GFR (Non-African American) 113.4 ml/min; Potassium 4.1 mmol/L (3.5-5.1)
[2021-12-20] MEDS: ACETAMINOPHEN 500 MG TAB PO SCH (08:34)
[2021-12-20] MEDS: allopurinoL 100 MG TAB PO SCH ×2 (08:34→21:52)
[2021-12-20] MEDS: POLYETHYLENE (MIRALAX) 17 GM PACK PO SCH (08:35)
[2021-12-20] MEDS: SENNA 8.6 MG TAB PO SCH (08:35)
[2021-12-20] MEDS: ATORVASTATIN 20 MG TAB PO SCH (08:35)
[2021-12-20] MEDS: FLUTICASONE/VILANTEROL 200/25MCG 14 PUFFS/INHALER INH SCH (08:35)
[2021-12-20] MEDS: dexAMETHasone 4 MG in SYRINGE 0 ML IV SCH (08:35)
[2021-12-20] MEDS: PANTOprazole 40 MG TAB PO SCH (08:35)
[2021-12-20] MEDS ORDERED: PROPOFOL IV EMULSION 10 MG/ML 20 ML VIAL IV ONE (09:16)
[2021-12-20] MEDS ORDERED: ROCURONIUM BROMIDE 10 MG/ML 5 ML VIAL IV ONE ×3 (09:16→11:16)
[2021-12-20] MEDS ORDERED: fentaNYL citrate 100 MCG/2 ML VIAL ONE (09:16)
[2021-12-20] MEDS ORDERED: MIDAZOLAM HCL 1 MG/ML 2ML VIAL ONE (09:16)
[2021-12-20] MEDS ORDERED: LIDOCAINE 2% 2 ML VIAL/AMP(20MG/ML) INFIL ONE (09:16)
--- NOTE | 2021-12-20 09:37 | History & Physical Bridge Note ---
Date of Service December 20, 2021 History & Physical Bridge Note I have examined the patient, reviewed the History & Physical and in the interval since the performance of the History & Physical I have noted the following changes of clinical significance: no changes noted Lumbar decompression and fusion L4-L5 possible L5-S1
[2021-12-20] MEDS ORDERED: ceFAZolin 2,000 MG/15 ML IV PUSH IV ONE (09:41)
[2021-12-20] MEDS ORDERED: ceFAZolin 2000MG 2,000 MG/15 ML SYR IV ONE (09:44)
[2021-12-20] MEDS ORDERED: EPINEPHrine INJ 1 MG/ML AMP ONE (10:02)
[2021-12-20] MEDS ORDERED: ceFAZolin 330 MG/ML 1 GM VIAL ONE (10:02)
[2021-12-20] MEDS ORDERED: BUPIVACAINE 0.5 % 5 MG/1 ML MPF 30ML VIAL ONE (10:02)
[2021-12-20] MEDS ORDERED: FLOSEAL HEMOSTATIC MATRIX 10ML TOP ONE (11:12)
[2021-12-20] MEDS ORDERED: NEOSTIGMINE METHYLSULFATE 1 MG/ML 10ML VIAL ONE (11:16)
[2021-12-20] MEDS ORDERED: ONDANSETRON INJ 2 MG/ML 2 ML VIAL ONE (11:16)
[2021-12-20] MEDS ORDERED: GLYCOPYRROLATE 0.2 MG/ML VIAL ONE (11:16)
[2021-12-20] MEDS ORDERED: DEXAMETHASONE SOD INJ 4 MG/ML VIAL ONE (11:16)
[2021-12-20] MEDS ORDERED: ePHEDrine sulfate 50 MG/ML AMP IV PRN (11:23)
[2021-12-20] MEDS ORDERED: PROMETHAZINE HCL 6.25 MG in SODIUM CHLORIDE 0.9% 50 ML IV PRN (11:23)
[2021-12-20] MEDS ORDERED: HYDROmorphone INJ 2 MG/ML SYR/VIAL IV PRN (11:23)
[2021-12-20] MEDS ORDERED: ATROPINE SULFATE 0.1 MG/ML 10ML SYR IV PRN (11:23)
[2021-12-20] MEDS ORDERED: ONDANSETRON INJ 2 MG/ML 2 ML VIAL IV PRN ×2 (11:23→13:31)
[2021-12-20] MEDS ORDERED: HYDROmorphone INJ 2 MG/ML SYR/VIAL ONE (12:00)
--- NOTE | 2021-12-20 12:09 | Operative Report ---
Post Operative Report Pre & Post Diagnosis Operation Date: 12/20/21 09:35 Pre-Op Diagnosis: Lumbar spinal stenosis with radiculopathy Post-Op Diagnosis: Same I identified the patient and participated in the time-out.: Yes Procedure Operation Date: 12/20/21 09:35 Actual Procedures #1 lumbar decompression with bilateral medial facetectomies and foraminotomies L3-L4 L4-5. #2 posterior spinal fusion L4-5. #3 placement posterior instrumentation L4-5 per #4 interbody fusion L4-5. #5 placement of titanium 14 x 26 mm cage at L4-5. #6 placement locally harvested morselized autograft in the posterior gutters. #7 placement of I factor combined with the toxin interbody space and posterior lateral gutters. Surgeon Dimitris Higginbotham, House Carpenter Kelsi Blackman Estimated Blood Loss 100 Findings Consistent with Post-Op Diagnosis Specimens None Indications This is a 51-year-old male who presents with steady decline in status worsening back and bilateral leg pain. He is at the point of requiring several oxycodone a day in order to tolerate his job. Subsequent is here for surgical invention. Description of Procedure Patient met with identified informed consent obtained. Patient was then taken to the operative suite underwent ablation placed in a prone position injectable torsion frame. All bony prominences well-padded eyes inspected to ensure no external pressure placed upon the. This point lumbar spine was prepped and draped in normal sterile fashion. Sharp dissection with the assistance of Bovie cautery was performed down to exposing the lamina and transverse processes of L4-L5. From caudal cephalad fashion complete laminectomy of L4 partial laminectomy of L3 was performed including bilateral medial facetectomies facetectomies and foraminotomies addressing severe spinal stenosis. Obvious facet hypertrophy and instability with significant gapping was noted at the L4-5 level. After complete decompression pedicle screws were placed in L4 and L5 bilaterally with assistance of fluoroscopy and appropriately sized karmen placed. By way of transforaminal approach on the right complete discectomy of L4-L5 was performed endplates curetted to subcortical bleeding bone. A 14 x 26 mm titanium cage filled with I factor tapped in position. The rods were then comp ressed locked into final position bilaterally. The transverse processes of L4 and L5 burred to subcortical bleeding bone. I factor combined with the toxin locally harvested morselized autograft was then placed in the posterior gutters. 15 round CALLI drain inserted. The incision was then closed with 1 Vicryl in the fascia 2-0 Vicryl subcutaneously and 4 Monocryl for final skin closure. Steri-Strips dressings placed. Patient waken taken PACU stable condition. Please note spinal cord monitoring visualized at the procedure no changes noted. Jennifer Blackman was present at the entire surgery and while the patient positioning complex portions of the surgery and fascial closure. I attest to the content of the Intraoperative Record and any orders documented therein. Any exceptions are noted below.
[2021-12-20] MEDS: fentaNYL citrate 100 MCG/2 ML VIAL IV PRN ×2 (13:04→13:09)
[2021-12-20] MEDS ORDERED: diphenhydrAMINE Capsule 25 MG CAP PO PRN (13:31)
[2021-12-20] MEDS ORDERED: ACETAMINOPHEN 500 MG TAB PO PRN (13:31)
[2021-12-20] MEDS ORDERED: hydrOXYzine HCl 25 MG TAB PO PRN (13:31)
[2021-12-20] MEDS ORDERED: traMADol HCL 50 MG TABLET PO PRN (13:31)
[2021-12-20] MEDS ORDERED: LORazepam 0.5 MG/1 ML VIAL IV PRN (13:31)
[2021-12-20] MEDS ORDERED: ALUMINUM/MAGNESIUM SUSP 30 ML UDC PO PRN (13:31)
[2021-12-20] MEDS ORDERED: bisacodyL 10 MG SUPP PR PRN (13:31)
[2021-12-20] MEDS ORDERED: DO NOT ADMINISTER PNEUMOCOCCAL VACCINE PRN (13:31)
[2021-12-20] MEDS ORDERED: HYDROmorphone INJ 0.5 MG/0.5 ML SYR IV PRN (13:31)
[2021-12-20] MEDS ORDERED: ACETAMINOPHEN 1,000 MG/100 ML VIAL IV PRN (13:31)
[2021-12-20] MEDS ORDERED: ONDANSETRON 4 MG OD TAB PO PRN (13:31)
[2021-12-20] MEDS ORDERED: NALOXONE HCL 0.4 MG/1 ML VIAL/CARP IV PRN (13:31)
[2021-12-20] MEDS ORDERED: PROMETHAZINE HCL 12.5 MG in SODIUM CHLORIDE 0.9% 50 ML IV PRN (13:31)
[2021-12-20] MEDS ORDERED: DO NOT ADMINISTER FLU VACCINE PRN (13:31)
[2021-12-20] MEDS ORDERED: SOD PHOSPHATE/SOD BIPHOSPHATE ENEMA 132 ML BTL PR PRN (13:31)
[2021-12-20] MEDS ORDERED: HYDROmorphone INJ 1 MG/ML SYRINGE IV PRN (13:31)
[2021-12-20] MEDS ORDERED: METOCLOPRAMIDE HCL INJ 5 MG/ML 2 ML VIAL IV PRN (13:31)
[2021-12-20] MEDS ORDERED: LORazepam 0.5 MG TAB PO PRN (13:31)
[2021-12-20] MEDS ORDERED: MAGNESIUM HYDROXIDE SUSP 30 ML UDC PO PRN (13:31)
[2021-12-20] MEDS ORDERED: LACTATED RINGER'S 1,000 ML IV SCH (13:31)
[2021-12-20] MEDS ORDERED: FAMOTIDINE 20 MG TAB PO PRN (13:31)
[2021-12-20] MEDS: KETOROLAC 30 MG/ML VIAL IV SCH ×2 (13:43→20:08)
--- NOTE | 2021-12-20 14:34 | Fluoroscopy Report ---
FL lumbar spine 2-3V CLINICAL HISTORY: L4-5 DECOPRESSION/FUSION TECHNIQUE: 2 views were obtained with the C-arm in the OR with the above procedure. Total fluoroscopy time was 17.2 seconds. Total skin dose was 9.82 mGy. Comparison: None available at the time of this dictation. FINDINGS/IMPRESSION: Intraoperative images were obtained of L4-L5 decompression and fusion. Please correlate with intraoperative fluoroscopy and operative report. ACT 112: Negative or not required by law. Electronically signed by: Reno Betancourt M.D. 12/20/2021 2:33 PM
[2021-12-20] MEDS ORDERED: NALOXONE HCL 0.4 MG/1 ML VIAL/CARP ONE (14:42)
--- NOTE | 2021-12-20 14:50 | Anesthesiology Progress Note ---
Date of Service December 20, 2021 Anesthesia Post Procedure Vital Signs Vital Signs: Temp Pulse Pulse Pulse Resp BP Pulse Ox 12/20/21 14:30 37 C 93 H 16 149/96 H 93 12/20/21 13:58 36.8 C 64 18 129/86 91 12/20/21 13:30 36.8 C 66 16 129/80 92 12/20/21 13:15 54 L 14 130/77 93 12/20/21 13:05 54 L 14 130/77 93 12/20/21 12:55 52 L 14 122/73 94 12/20/21 12:45 36.4 C L 53 L 14 127/74 94 12/20/21 12:35 53 L 14 127/74 93 12/20/21 12:25 56 L 18 124/72 95 12/20/21 12:19 36.3 C L 64 18 137/72 95 12/20/21 08:31 36.6 C 72 18 146/91 H 96 12/20/21 07:26 36.8 C 62 16 126/79 93 12/19/21 22:11 36.7 C 69 16 132/79 93 Pain Intensity Left Lower Back: Pain Intensity: 3 Back: Pain Intensity: 7 Transfer of Care Handoff Completed per policy Notes Mental Status: alert / awake / arousable Patient Amnestic to Procedure: Yes Nausea / Vomiting: adequately controlled Pain: adequately controlled Airway Patency, RR, SpO2: stable & adequate BP & HR: stable & adequate Hydration State: stable & adequate Anesthetic Complications: no major complications apparent
--- NOTE | 2021-12-20 16:14 | Hospitalist Progress Note ---
Date of Service December 20, 2021 Assessment & Plan (1) Lumbar radiculopathy: Plan: s/p back surgery with Dr. Higginbotham * dilaudid 0.5mg/1mg according to pain scale * tylenol 1gm TID * baclofen BID prn muscle spasms * Decadron as ordered by ortho * heating pad * Dr. Higginbotham following * Incentive spirometer use q1h * DVT ppx * AM labs Pain is adequately controlled on above regimen. Will need PT/OT eval tomorrow. (2) Intractable low back pain: Plan: s/p surgery, see above (3) Lumbar disc herniation: Plan: s/p surgery, see above (4) Celiac disease: Plan: gluten free diet (5) Dyslipidemia: Plan: cont statin (6) Depression: Plan: cont cymbalta & effexor (7) GERD without esophagitis: Plan: PPI daily (8) Gout: Plan: no flare at this time cont allopurinol prophylaxis (9) Asthma: Plan: no exacerbation at this time controlled cont albuterol prn cont controller agent (breo) (10) DVT prophylaxis: Plan: Early ambulation Can resume DVT ppx tomorrow morning if he isn't ready for d/c Plan: AM labs PT/OT eval D/C planning Admission and Anticipated Discharge Date Admission Date: December 17, 2021 Subjective Patient seen on rounds this afternoon as he was in the OR during my morning rounds. He is status post lumbar decompression with bilateral medial facetectomies and formainotomies L3-L4, L4-L5, among additional intraoperative procedures performed by Dr. Higginbotham. He is currently resting comfortably in bed, he does endorse pain with movement in his lower back. Pain adequately controlled with medications. Denies pain moving down one or both legs, denies numbness/tingling down his legs. He ate lunch, tolerated it well. Now is going to attempt voiding. Has no cp or dyspnea. Review of Systems Review of Systems: CONSTITUTIONAL: Denies weight loss/gain, fever and chills, fatigue, malaise, generalized weakness. HEENT: Denies changes in vision and hearing. RESPIRATORY: Denies SOB, cough, wheezing. CV: Denies palpitations, CP, lower extremity edema, orthopnea, PND. GI: Denies abdominal pain, nausea, vomiting and diarrhea. : Denies dysuria and urinary frequency, urgency, hesitancy. MUSCULOSKELETAL: +low back pain with movement, post op. SKIN: Denies rash and pruritus. NEUROLOGICAL: Denies headache, syncope, focal weakness, numbness, tingling. PSYCHIATRIC: Denies recent changes in mood. Denies anxiety and depression. Physical Exam Physical Exam: GENERAL: 51 yo well-developed, well-nourished WM. NAD. LUNGS: Clear to auscultation bilaterally. No W/R/R. CARDIOVASCULAR: Regular rate and rhythm. No M/G/R. No JVD. ABDOMEN: Soft, non-tender and non-distended. BS normal x 4 quad. EXTREMITIES: No edema. Non-tender. Peripheral pulses +2/4. NEUROLOGIC: A&O x3. PSYCHIATRIC: Cooperative. Appropriate mood and affect. SKIN: Warm, dry, intact. No rashes or lesions. Results & Data Results & Data ([facility]) Vital Signs (Past 12 Hours) Vital Signs Temp Pulse Pulse Pulse Resp BP Pulse Ox 12/20/21 15:35 36.4 C L 78 18 131/82 92 12/20/21 14:30 37 C 93 H 16 149/96 H 93 12/20/21 13:58 36.8 C 64 18 129/86 91 12/20/21 13:30 36.8 C 66 16 129/80 92 12/20/21 13:15 54 L 14 130/77 93 12/20/21 13:05 54 L 14 130/77 93 12/20/21 12:55 52 L 14 122/73 94 12/20/21 12:45 36.4 C L 53 L 14 127/74 94 12/20/21 12:35 53 L 14 127/74 93 12/20/21 12:25 56 L 18 124/72 95 12/20/21 12:19 36.3 C L 64 18 137/72 95 12/20/21 08:31 36.6 C 72 18 146/91 H 96 12/20/21 07:26 36.8 C 62 16 126/79 93 PG Care Time/CCT Total # of Minutes Spent Total Time Spent with Patient: Total time spent is greater than 50% in coordination of care (as documented) at patient's floor/unit and/or counseling patient: Coding Level of Care Code 03732 Subseq Hosp Care Lvl 2 Diagnoses Lumbar radiculopathy M54.16 Intractable low back pain M54.59 Lumbar disc herniation M51.26 Celiac disease K90.0 Dyslipidemia E78.5 Depression F32.9 GERD without esophagitis K21.9 Gout M10.9 Asthma J45.909 DVT prophylaxis Z29.9
[2021-12-20] MEDS: ceFAZolin 2000MG 2,000 MG/15 ML SYR IV SCH (16:50)
[2021-12-20] MEDS: DULoxetine HCL 30 MG CAP PO SCH (21:52)
[2021-12-20] MEDS: DOCUSATE SODIUM/SENNA 50/8.6MG TAB PO SCH (21:52)
[2021-12-20] MEDS: VENLAFAXINE HCL XR 150 MG CAPXR PO SCH (21:52)
[2021-12-21] MEDS: ceFAZolin 2000MG 2,000 MG/15 ML SYR IV SCH (02:04)
[2021-12-21] MEDS: KETOROLAC 30 MG/ML VIAL IV SCH ×2 (02:04→08:44)
[2021-12-21] MEDS: oxyCODONE HCL IR 5 MG TAB (IMMEDIATE RELEASE) PO PRN ×4 (06:03→21:15)
[2021-12-21] MEDS: POLYETHYLENE (MIRALAX) 17 GM PACK PO SCH ×4 (06:08→23:04)
[2021-12-21 06:19] LABS: Hematocrit (blood only) 42.3 % (42-52); Hemoglobin 14.1 g/dL (14.0-18.0)
[2021-12-21 06:41] LABS: BUN Creatinine Ratio 25.3 (10-20); Calcium 8.2 mg/dl (8.5-10.1); Creatinine Clr Calc Pharmacy 116.3 ml/min; Est GFR (African American) 116.6 ml/min; Est GFR (Non-African American) 100.6 ml/min; Potassium 4.1 mmol/L (3.5-5.1)
[2021-12-21] MEDS: SENNA 8.6 MG TAB PO SCH (08:24)
[2021-12-21] MEDS: ATORVASTATIN 20 MG TAB PO SCH (08:25)
[2021-12-21] MEDS: allopurinoL 100 MG TAB PO SCH ×2 (08:25→21:15)
[2021-12-21] MEDS: FLUTICASONE/VILANTEROL 200/25MCG 14 PUFFS/INHALER INH SCH (08:41)
[2021-12-21] MEDS: dexAMETHasone 6 MG in SYRINGE 0 ML IV SCH (08:44)
--- NOTE | 2021-12-21 09:58 | Orthopedic Progress Note ---
Date of Service December 21, 2021 Assessment & Plan (1) Lumbar radiculopathy: Plan: At this time initiate physical therapy monitor his CALLI operatively discharge home the next few days. Admission and Anticipated Discharge Date Admission Date: December 17, 2021 Subjective Patient's back pain is controlled leg symptoms markedly improved Physical Exam Physical Exam: Patient has good strength testing. Is comfortable. Results & Data ([facility]) Vital Signs (Past 12 Hours) Vital Signs Temp Pulse Pulse Resp BP Pulse Ox 12/21/21 07:38 36.8 C 66 12 155/81 H 95 12/21/21 02:06 36.7 C 66 15 123/76 93 12/20/21 22:11 36.7 C 72 18 147/82 H 92
--- NOTE | 2021-12-21 13:24 | Hospitalist Progress Note ---
Date of Service December 21, 2021 Assessment & Plan (1) Lumbar radiculopathy: Plan: s/p back surgery with Dr. Higginbotham on 12/20--POD#1 * Continue tylenol 1gm TID prn mild pain * baclofen BID prn muscle spasms * Decadron as ordered by ortho * heating pad and can continue use of Lidoderm patch daily * On OxyIR for pain management which seems to be controlling pain * d/c Tramadol and Dilaudid (given a one time dose of Dilaudid last PM) * Dr. Higginbotham following * Incentive spirometer use q1h Pain is adequately controlled on above regimen. Continue PT/OT. (2) Intractable low back pain: Plan: s/p surgery, see above (3) Lumbar disc herniation: Plan: s/p surgery, see above (4) Celiac disease: Plan: gluten free diet (5) Dyslipidemia: Plan: cont statin (6) Depression: Plan: cont cymbalta & effexor (7) GERD without esophagitis: Plan: PPI daily (8) Gout: Plan: no flare at this time cont allopurinol prophylaxis (9) Asthma: Plan: no exacerbation at this time controlled cont albuterol prn cont controller agent (breo) (10) DVT prophylaxis: Plan: Early ambulation, pt is low risk Plan: No further labwork needed Continue therapy services Pain control D/C planning -- anticipate d/c home tomorrow, can continue PT as outpatient Admission and Anticipated Discharge Date Admission Date: December 17, 2021 Subjective Patient seen on rounds this afternoon. During normal rounds, pt was participating with PT and walking in r[place]. Patient's back pain is controlled leg symptoms markedly improved. Denies cp or dyspnea. Review of Systems Review of Systems: CONSTITUTIONAL: Denies weight loss/gain, fever and chills, fatigue, malaise, generalized weakness. HEENT: Denies changes in vision and hearing. RESPIRATORY: Denies SOB, cough, wheezing. CV: Denies palpitations, CP, lower extremity edema, orthopnea, PND. GI: Denies abdominal pain, nausea, vomiting and diarrhea. : Denies dysuria and urinary frequency, urgency, hesitancy. MUSCULOSKELETAL: +low back pain with movement, post op--improving. SKIN: Denies rash and pruritus. NEUROLOGICAL: Denies headache, syncope, focal weakness, numbness, tingling. PSYCHIATRIC: Denies recent changes in mood. Denies anxiety and depression. Physical Exam Physical Exam: GENERAL: 51 yo well-developed, well-nourished WM. NAD. LUNGS: Clear to auscultation bilaterally. No W/R/R. CARDIOVASCULAR: Regular rate and rhythm. No M/G/R. No JVD. ABDOMEN: Soft, non-tender and non-distended. BS normal x 4 quad. EXTREMITIES: No edema. Non-tender. Peripheral pulses +2/4. NEUROLOGIC: A&O x3. PSYCHIATRIC: Cooperative. Appropriate mood and affect. SKIN: Warm, dry, intact. No rashes or lesions. postop back incision covered/dressed. Results & Data Results & Data ([facility]) Vital Signs (Past 12 Hours) Vital Signs Temp Pulse Pulse Resp BP BP Pulse Ox 12/21/21 11:10 36.7 C 78 15 151/80 H 93 12/21/21 07:38 36.8 C 66 12 155/81 H 95 12/21/21 02:06 36.7 C 66 15 123/76 93 Laboratory Results 12/21/21 05:33 12/21/21 05:33 PG Care Time/CCT Total # of Minutes Spent Total Time Spent with Patient: Total time spent is greater than 50% in coordination of care (as documented) at patient's floor/unit and/or counseling patient: Coding Level of Care Code 76777 Subseq Hosp Care Lvl 2 Diagnoses Lumbar radiculopathy M54.16 Intractable low back pain M54.59 Lumbar disc herniation M51.26 Celiac disease K90.0 Dyslipidemia E78.5 Depression F32.9 GERD without esophagitis K21.9 Gout M10.9 Asthma J45.909 DVT prophylaxis Z29.9
[2021-12-21] MEDS: DOCUSATE SODIUM/SENNA 50/8.6MG TAB PO SCH (21:15)
[2021-12-21] MEDS: VENLAFAXINE HCL XR 150 MG CAPXR PO SCH (21:15)
[2021-12-21] MEDS: DULoxetine HCL 30 MG CAP PO SCH (21:15)
[2021-12-22] MEDS: oxyCODONE HCL IR 5 MG TAB (IMMEDIATE RELEASE) PO PRN ×3 (01:45→11:39)
[2021-12-22] MEDS: POLYETHYLENE (MIRALAX) 17 GM PACK PO SCH ×2 (05:50→11:40)
[2021-12-22] MEDS: dexAMETHasone 6 MG in SYRINGE 0 ML IV SCH (07:48)
[2021-12-22] MEDS: SENNA 8.6 MG TAB PO SCH (07:49)
[2021-12-22] MEDS: allopurinoL 100 MG TAB PO SCH (07:49)
[2021-12-22] MEDS: FLUTICASONE/VILANTEROL 200/25MCG 14 PUFFS/INHALER INH SCH (07:49)
[2021-12-22] MEDS: ATORVASTATIN 20 MG TAB PO SCH (07:49)
--- NOTE | 2021-12-22 11:36 | Discharge Summary ---
Date of Service December 22, 2021 Admission HPI Per Admitting Provider 51yo male with history of celiac disease and intermittent asthma presents with acute/chronic lumbar back pain. Patient states he has been dealing with left-sided lumbar back pain for about 1 year. He has had associated radicular symptoms in the left leg with pain traveling into the posterior thigh as well as paresthesias of the left foot in the past. He has had chiropractic therapy/adjustments, 3 epidural pain injections via [facility] (most recent 10/2021), PT, and multiple pain med trials. Meds that he has used recently include celebrex, baclofen prn, and percocet prn. He had previously used tramadol and OTC meds (tylenol/motrin) as well. He is now at a point that all activities of daily living are very difficult and tasks are hard to complete. He has pain most hours of the day. He was to have a lumbar decompression/fusion procedure by Dr Higginbotham last week but it was canceled. It was rescheduled to this week. The patient came to the ER today because he simply could not control his pain at home. Principal Diagnosis Lumbar spinal stenosis with neurogenic claudication Discharge Data Allergies Allergy/AdvReac Type Severity Reaction Status Date / Time No Known Allergies Allergy Verified 12/17/21 14:41 Consultations 12/17/21 15:12 ED Decision to Admit Stat 12/17/21 15:58 Consult Orthopedic Surgery Routine 12/18/21 07:56 Consult Anesthesiology Routine Procedures Performed Operation Date: 12/20/21 09:35 Actual Procedures p L4-L5 Decompression Fusion(Not Applicable) - Dimitris Higginbotham, Ordered Studies 12/18/21 07:54 MR lumbar spine wo con Routine 12/20/21 09:35 [place] lumbar spine 2-3V Routine Hospital Course (1) Lumbar radiculopathy: Patient was admitted with severe leg pain and subsequently underwent surgery to address severe lumbar spinal stenosis with instability. He tolerated the procedure well was taken to orthopedic floor postoperative. Postop day 1 he was up and ambulating marked improvement of his symptom complex. Aggressive postop day #2. Excellent strength testing. CALLI drain decreasing probably. Subsequent discharge home. Discharge orders instructions from the chart for further review. Total Time Total Time Spent Total Time Spent (In Minutes): 20 minutes Discharge Plan Discharge Items Patient Disposition: Home - Self-Care Reason For Visit: ACUTE/CHRONIC LUMBAR BACK PAIN Discharge Diagnosis: lumbar stenosis with claudication Activity: As commented below Non-emergency contact: Primary Care Provider Call non-emergency contact if: you have any medication questions Follow-up/Referrals: Rosalva Cornell CRNP [Primary Care Provider] - Diet: Regular Addtl Attending Provider Instructions: ACTIVITY RECOMMENDATIONS: SELF CARE INSTRUCTIONS AFTER THORACIC/LUMBAR FUSIONS 1. You may walk to your tolerance. It is good exercise for your legs and back. Expect some back and intermittent leg aches and pains. 2. You may perform "counter-top" level activities (make a sandwich, ralph with a project, etc.). 3. No bending or lifting of more than 10 pounds or back twisting of any nature (roll like a log when turning in bed). 4. You may ride in a car for 20-30 minutes at a time. No driving until after your first visit with your doctor. 5. Frequent changes of position and restricting sitting to 30 minutes at a time will help limit the amount of back spasms and stiffness you may experience. 6. You may discontinue the use of ambulatory aids (cane, crutches, etc.) once your strength and confidence allow. 7. You may brand coordinator the shower and let water strike your incision when you arrive home at least once daily. Do not take a tub bath, sit in a hot tub or go into a swimming pool until after your first recheck in the office. SPECIAL CARE INSTRUCTIONS: VERY IMPORTANT TO READ AND REVIEW A. Your surgical incision has been closed with a cosmetic suture under the skin that will dissolve in about 6 weeks. In 14 days, you can use a pair of clean scissors and cut the suture that is left outside of the skin at the ends of your incision. 1. The small skin tapes can be removed 7 days after surgery if they have not fallen off by that point. 2. You may keep the wound open to air as much as possible to promote healing after post-op day number 5 unless told otherwise by your doctor. 3. If you think the wound looks like it is becoming infected (redness or worsening drainage) and/or you are experiencing fever, chill or worsening back pain and muscle spasms, contact the office so that we may evaluate you as soon as possible. B. Complications are uncommon, but please contact us if you have any signs or symptoms of: 1. wound infection (fever higher than 102.5 degrees F, redness, separation of wound, drainage, or increasing pain from the incision) 2. blood clots in legs (pain, swelling, redness and warmth in legs) 3. urinary tract infection (fever higher than 102.5 degrees F, burning upon urination or increased frequency of urination) 4. nerve problems (inability to walk on your toes or heels, numbness, loss of bowel or bladder control) 5. any other symptoms that concern you C. Please call the office at if you have any concerns or questions about your operation or recovery. D. No smoking! Smoking drastically decreases the chance of a solid fusion. E. Do not take any anti-inflammatory medications (Indocin, Advil, Motrin, Aspirin, Naprosyn, etc.) as these may inhibit the chance of a solid fusion. Tylenol is okay to take for pain. MANAGING PAIN AFTER SPINAL SURGERY 1. Narcotic medication is intended for short-term use and will be provided for surgical pain. Surgical pain usually lasts for a period of 4-6 weeks. Narcotic medication includes Percocet, Vicodin, Darvocet, Tylenol #3 or Lortab. 2. Longer-term pain is more appropriately treated with non-narcotic medication such as Tylenol ES. 3. Muscle spasm is not appropriately treated with narcotics. Muscle relaxers such as Soma, Flexeril or Skelaxin can be used along with Tylenol ES. 4. Remember that we all live with some "aches and pains". This is not unusual or uncommon after an injury or as we get older. a. Back pain is expected and may include muscle spasms for 4 to 6 weeks after surgery. The pain should gradually improve. If the pain worsens for no apparent reason, please contact the office. b. Intermittent leg pain may also be experienced and should not be concerned about unless it worsens for no apparent reason. If so, please contact the office. 5. We will provide appropriate medication within the normal guidelines of their prescribed use. We will also be very cautious and aware of potential abuse and extended duration of patients' medication needs. a. Pain medications are for your comfort and to assist with sleep and rest so that the tissue can heal. They are not provided in order to return to normal activity and should not be used through the day. To do so or worsening pain at night can result from ongoing tissue damage and development of tolerance to the prescribed medicine. 6. Please allow 2-3 days to process refills. Prescriptions will not be mailed but must be picked up at the office. FOLLOW UP VISIT: Keep your scheduled follow-up appointment. Any questions, please call the office at . Pending Studies at Discharge: No Stand-Alone Forms: My [facility], Smoking Cessation Medications and DC Order Prescriptions: New tramadol 50 mg tablet 50 mg PO Q6H PRN (Reason: pain, moderate) Qty: 30 RF: 0 oxycodone 5 mg tablet 5 mg PO Q6H PRN (Reason: pain, severe) Qty: 30 RF: 0 Continued allopurinol 100 mg tablet 100 mg PO BID Qty: 180 RF: 3 baclofen 10 mg tablet 10 mg PO BID PRN (Reason: back spasm) Qty: 60 RF: 2 ferrous sulfate 325 mg (65 mg iron) tablet 650 mg PO BID RF: 0 fluticasone propion-salmeterol [Advair Diskus] 250-50 mcg/dose blister with device 1 inh inhalation BID RF: 0 aspirin 81 mg tablet,delayed release (DR/EC) 81 mg PO HS RF: 0 atorvastatin 20 mg tablet 20 mg PO QAM RF: 0 omeprazole 40 mg capsule,delayed release(DR/EC) 40 mg PO QAM RF: 0 duloxetine [Cymbalta] 30 mg capsule,delayed release(DR/EC) 30 mg PO HS RF: 0 omega-3 fatty acids 1,000 mg Capsule 2,000 mg PO BID RF: 0 Discontinued venlafaxine 75 mg capsule,extended release 24hr 150 mg PO HS Qty: 180 RF: 3 celecoxib 200 mg capsule 200 mg PO BID RF: 0 Discharge Orders: Discharge Order (Routine); Ordered 12/22/21 Ordered By: Dimitris Higginbotham Admission Data Admit Date/Time: 12/17/21 16:01 Attending Provider: Farzad Briscoe Admit Provider: Chaitanya Eli Primary Care Provider: Rosalva Cornell Other Providers: Chaitanya Eli ; Dimitris Higginbotham ; Frantz Lassiter
--- NOTE | 2021-12-22 12:16 | Hospitalist Progress Note ---
Date of Service December 22, 2021 Assessment & Plan (1) Lumbar radiculopathy: Plan: s/p back surgery with Dr. Higginbotham on 12/20--POD#1 * Continue tylenol 1gm TID prn mild pain * baclofen BID prn muscle spasms * Decadron as ordered by ortho has been completed * heating pad and can continue use of Lidoderm patch daily * On OxyIR for pain management which seems to be controlling pain * d/c Tramadol and Dilaudid (given a one time dose of Dilaudid 28 PM) * Dr. Higginbotham to f/u as outpatient--rx's sent to pharmacy for pain meds. * Remove CALLI drain if ok w/ Dr. Higginbotham prior to d/c. * Cleared medically for d/c home from medical standpoint (2) Intractable low back pain: Plan: s/p surgery, see above (3) Lumbar disc herniation: Plan: s/p surgery, see above (4) Celiac disease: Plan: gluten free diet (5) Dyslipidemia: Plan: cont statin (6) Depression: Plan: cont cymbalta & effexor (7) GERD without esophagitis: Plan: PPI daily (8) Gout: Plan: no flare at this time cont allopurinol prophylaxis (9) Asthma: Plan: no exacerbation at this time controlled cont albuterol prn cont controller agent (breo) (10) DVT prophylaxis: Plan: Early ambulation, pt is low risk Plan: No medical contraindications to discharge at this time. He is doing well post- operatively. Would advise f/u with pcp within 1 week and f/u with Dr. Higginbotham as advised. Admission and Anticipated Discharge Date Admission Date: December 17, 2021 Subjective Patient seen on rounds this morning. POD#2, doing well, minimal back soreness with ambulation but pain is controlled on OxyIR. Has been participating and meeting therapy goals. Denies CP or dyspnea. Review of Systems Review of Systems: CONSTITUTIONAL: Denies weight loss/gain, fever and chills, fatigue, malaise, generalized weakness. HEENT: Denies changes in vision and hearing. RESPIRATORY: Denies SOB, cough, wheezing. CV: Denies palpitations, CP, lower extremity edema, orthopnea, PND. GI: Denies abdominal pain, nausea, vomiting and diarrhea. : Denies dysuria and urinary frequency, urgency, hesitancy. MUSCULOSKELETAL: +low back pain with movement, post op--improving. SKIN: Denies rash and pruritus. NEUROLOGICAL: Denies headache, syncope, focal weakness, numbness, tingling. PSYCHIATRIC: Denies recent changes in mood. Denies anxiety and depression. Physical Exam Physical Exam: GENERAL: 51 yo Well-developed, well-nourished WM. NAD. LUNGS: Clear to auscultation bilaterally. No accessory muscle use. No W/R/R. CARDIOVASCULAR: Regular rate and rhythm. No M/G/R. No JVD. ABDOMEN: Soft, non-tender and non-distended. BS normal x 4 quad. EXTREMITIES: No edema. Non-tender. Peripheral pulses +2/4. NEUROLOGIC: A&O x3. No focal neurologic deficits. PSYCHIATRIC: Cooperative. Appropriate mood and affect. SKIN: Warm, dry, intact. Back incision dressed. CALLI drain noted with no significant output. Results & Data Results & Data ([facility]) Vital Signs (Past 12 Hours) Vital Signs Temp Pulse Resp BP Pulse Ox 12/22/21 07:43 37.1 C 75 18 155/85 H 95 Laboratory Results no labs today PG Care Time/CCT Total # of Minutes Spent Total Time Spent with Patient: Total time spent is greater than 50% in coordination of care (as documented) at patient's floor/unit and/or counseling patient: Coding Level of Care Code 42256 Subseq Hosp Care Lvl 2 Diagnoses Lumbar radiculopathy M54.16 Intractable low back pain M54.59 Lumbar disc herniation M51.26 Celiac disease K90.0 Dyslipidemia E78.5 Depression F32.9 GERD without esophagitis K21.9 Gout M10.9 Asthma J45.909 DVT prophylaxis Z29.9
== END 2021-12-22 14:00 | disposition home or self-care (01) | DRG 455 ==
LOC: ED 13:37 → SUATTDRO 16:01 → 3W 16:01